=== PATIENT | female | born 1960 | race Caucasian/White ===

== ENCOUNTER 2017-11-05 16:21 | Inpatient (IN) | payer SELFPAY ==
--- NOTE | 2017-11-05 21:43 | RAD ---
Indication: Generalized weakness. Shortness of breath. Shortness of breath on exertion. Comparison: No relevant prior exams available on the [facility] PACS for comparison. Technique: Upright AP 2109 hours Report: Tip of the dual-lumen tunneled RIGHT side central venous catheter is at the level of the RIGHT atrium. Negative for pneumothorax. Small bilateral dependent pleural effusions with proportional basilar atelectasis. Upper normal heart size. Mildly prominent central pulmonary vasculature with cephalization. IMPRESSION: Pulmonary vascular congestion with associated small pleural effusions and basilar atelectasis.
[2017-11-05] MEDS ORDERED: Nitroglycerin 2% OINT* 1 GM PAK TOPICAL ONE (21:53)
[2017-11-05 21:55] LABS: ABS Basophils 0.1 10^3/ul (0-0.2); ABS Eosinophils 0.2 10^3/ul (0-0.6); ABS Lymphocytes 2.2 10^3/ul (1.0-4.8); ABS Monocytes 0.5 10^3/ul (0-0.8); ABS Neutrophils 6.3 10^3/ul (1.5-7.7); ABS Nucleated RBC 0 10^3/ul; Eosinophil % 2.1 % (0-6); Hematocrit 26 % (35-47); Hemoglobin 8.5 g/dl (12.0-16.0); Lymphocyte % 23.5 % (25-47); Mean Corpuscular HGB Conc 33 g/dl (31-36); Mean Corpuscular Hemoglobin 29 pg (27-31); Mean Corpuscular Volume 89 fL (80-97); Mean Platelet Volume 8 um3 (7.4-10.4); Nucleated Red Blood Cells % 0; Platelet Count 391 10^3/ul (150-450); Red Blood Count 2.94 10^6/ul (4.0-5.4); Red Cell Distribution Width 17 % (10.5-15); White Blood Count 9.3 10^3/ul (3.5-10.8)
[2017-11-05] MEDS ORDERED: Furosemide IV* 10 MG/ML VIAL (40 MG) IV SLOW PU ONE (21:57)
[2017-11-05] MEDS ORDERED: Metolazone TAB* 5 MG PO ONE (21:59)
[2017-11-05] MEDS ORDERED: Aspirin Low Dose CHEW TAB* 81 MG PO ONE (21:59)
[2017-11-05 22:02] LABS: INR 0.83 (0.77-1.02)
--- NOTE | 2017-11-05 22:03 | ED ---
Mike Wright Tecjoon, scribed for Thanh Bailey MD on 11/05/17 at 2033 . Complex/Multi-Sys Presentation - HPI Summary HPI Summary: This patient is a 57 year old female presenting to [facility] accompanied by with a chief complaint of general weakness and SOB since a few days ago, worsening today, this afternoon. Patient states that it has been 2 weeks since her last dialysis treatment. Patient states that at onset, sx were just at night , while laying on her bed, but has spread. Patient has SOB on exertion, especially. Patient additionally reports abd distention. Patient denies chest pain, chest heaviness. Patient has hx of kidney disfunction - History Of Current Complaint Chief Complaint: EDShortnessOfBreath Time Seen by Provider: 11/05/17 20:22 Hx Obtained From: Patient Onset/Duration: Gradual Onset, Lasting Days, Still Present, Worse Since - today Timing: Constant Aggravating Factor(s): nothing Alleviating Factor(s): nothing Associated Signs And Symptoms: Positive: Other - abd distention. Negative: Chest Pain - Allergies/Home Medications Allergies/Adverse Reactions: Allergies Allergy/AdvReac Type Severity Reaction Status Date / Time No Known Allergies Allergy Verified 11/05/17 20:35 PMH/Surg Hx/FS Hx/Imm Hx Previously Healthy: No Endocrine/Hematology History: Reports: Hx Diabetes Cardiovascular History: Reports: Hx Hypercholesterolemia, Hx Hypertension Respiratory History: Reports: Hx Chronic Obstructive Pulmonary Disease (COPD) Infectious Disease History: No Infectious Disease History: Denies: Traveled Outside the [place] in Last 30 Days - Family History Known Family History: Positive: Diabetes - Social History Lives: With Family Alcohol Use: None Hx Substance Use: No Hx Tobacco Use: Yes Review of Systems Cardiovascular: Negative - chest heaviness Negative: Chest Pain Positive: Shortness Of Breath Positive: Other - abd distension Positive: Weakness All Other Systems Reviewed And Are Negative: Yes Physical Exam Triage Information Reviewed: Yes Vital Signs On Initial Exam: Initial Vitals Temp Pulse Resp BP Pulse Ox 97.6 F 95 22 175/85 99 11/05/17 16:24 11/05/17 16:24 11/05/17 16:24 11/05/17 16:24 11/05/17 16:24 Vital Signs Reviewed: Yes Appearance: Positive: Well-Appearing, No Pain Distress Skin: Positive: Warm, Skin Color Reflects Adequate Perfusion Head/Face: Positive: Normal Head/Face Inspection Eyes: Positive: EOMI ENT: Positive: Pharynx normal Neck: Positive: Supple, Nontender Respiratory/Lung Sounds: Positive: Clear to Auscultation, Breath Sounds Present Cardiovascular: Positive: RRR. Negative: Murmur Abdomen Description: Positive: Nontender Musculoskeletal: Positive: Strength/ROM Intact, Edema Left, Edema Right Neurological: Positive: Sensory/Motor Intact, Alert, Oriented to Person Place, Time, CN Intact II-III Psychiatric: Positive: Normal - [place] Coma Scale Best Eye Response: 4 - Spontaneous Best Motor Response: 6 - Obeys Commands Best Verbal Response: 5 - Oriented Diagnostics - Vital Signs Vital Signs Temp Pulse Resp BP Pulse Ox 11/05/17 18:00 97.6 F 92 20 172/80 99 11/05/17 16:24 97.6 F 95 22 175/85 99 - Laboratory Result Diagrams: 11/05/17 21:28 Lab Statement: Any lab studies that have been ordered have been reviewed, and results considered in the medical decision making process. - Radiology CXR Xray Interpretation: Positive (See Comments) - IMPRESSION: Pulmonary vascular congestion with associated small pleural effusions and basilar atelectasis. ED physician has reviewed this radiology report. Radiology Interpretation Completed By: Radiologist - EKG 2046 Cardiac Rate: NL EKG Rhythm: Sinus Rhythm - 78 BPM EKG Interpretation: NSR (78 BPM), Normal WI, QRS. Flat T-wave in inferior lateral leads Complex Multi-Symp Course/Dx Course Of Treatment: This patient is a 57 year old female presenting to [facility] accompanied by with a chief complaint of general weakness and SOB since a few days ago, worsening today, this afternoon. Patient states that it has been 2 weeks since her last dialysis treatment. Patient states that at onset , sx were just at night, while laying on her bed, but has spread. Patient has SOB on exertion, especially. Patient additionally reports abd distention. Patient denies chest pain, chest heaviness. Patient has hx of kidney disfunction. An EKG, taken 2046, reveals NSR (78 BPM), Normal WI, QRS. Flat T- wave in inferior lateral leads. CXR reveals, per radiologist, IMPRESSION: Pulmonary vascular congestion with associated small pleural effusions and basilar atelectasis. ED physician has reviewed this radiology report. DW Dr Sebastian who asked me to give the patient 120mg lasix iv and metolazone 5 mg po, he will dialyse in AM. RAÚL Perales. - Diagnoses Provider Diagnoses: Pulmonary edema, Renal failure, Acute electrocardiogram changes - Critical Care Time Critical Care Time: 30-74 min Discharge - Discharge Plan Condition: Good Disposition: ADMITTED TO [facility] Referrals: Alvaro Sebastian MD [Primary Care Provider] - The documentation as recorded by the Mike sue Tecjoon accurately reflects the service I personally performed and the decisions made by me, Thanh Bailey MD.
[2017-11-05 22:10] LABS: EGFR Non-African American 10.1 (>60)
[2017-11-05] MEDS ORDERED: CMCS: Melatonin (NF) 3 MG TAB PO PRN (22:27)
[2017-11-05] MEDS ORDERED: Albuterol 2.5 MG/3 ML NEB.SOL* (0.083%) INH PRN (22:27)
[2017-11-05] MEDS ORDERED: Ondansetron INJ* 2 MG/ML VIAL IV PRN (22:27)
--- NOTE | 2017-11-05 23:13 | HP ---
H&P (Free Text) History and Physical: PCP: Dr Norris, [facility] Nephrology: Dean Sebastian MD Date/Time: 11/05/2016 2220 CC: SOB HPI: Mrs Chavez is a 57YO female HX DM2, ESRD on intermittent HD, HTN, HLD who last had dialysis Oct 11. She reports increased fatigue, SOB, & generalized swelling over the past 3-4 days. The SOB is worse with activity and lying flat. She reports some chills, loose/watery diarrhea x3 today, and had a single episode of N/V today, but denies fevers, sweats, chest pain, palpitations, light -headedness, black or bloody content to emesis/stool, B/U/F of urine, cough, congestion, or other issues. She reports she continues to produce urine, but at much less volume than normal. She adamantly denies sodium indiscretion over the holidays. PMedHx DM2 requiring insulin ESRD on intermittent dialysis HTN HLD Medications Nursing to reconcile. 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 tubal ligation SocHx: 1/2 PPD cigarettes, no alcohol or recreational drugs; , lives with her boyfriend; on medical disability, formerly a postal employee; DNR/I code status FamHx: Mother: passed at 72 2nd CVA, DM2; Father: passed at 57 2nd complications of alcoholism; 3 sisters: (1) HX cervical CA, (1) pre-DM; 2 brothers: (1) healthy, (1) back issues ROS: as above, otherwise reviewed and all were negative vitals: Vital Signs Temp 36.4 C 11/05/17 18:00 Pulse 85 11/05/17 23:00 Resp 20 11/05/17 18:00 BP 140/77 11/05/17 23:00 Pulse Ox 99 11/05/17 23:00 Intake & Output 11/04/17 11/05/17 11/05/17 23:59 11:59 23:59 Weight 78.97 kg Constitutional: NAD, normally developed, overweight unkempt white female appearing much older than her reported age HEENM: atraumatic; sclera/conjunctiva: anicteric/clear; hearing: clinically intact; oropharynx: clear, mucosa moist Neck: soft tissue: non-tender; thyroid: normal Pulmonary: scant fine bibasilar crackles, diffusely diminished B, fair aeration , no accessory muscle use CV: RR/RR, normal S1S2, no carotid bruit, no jugular venous distention, 2+ B DP/ PT, 2+ BLE edema, 1+ B thigh edema, trace pre-sacral edema Abdominal: soft, non-distended, non-tender, no rebound/guarding/rigidity, normoactive bowel sounds, no hepatosplenomegaly or masses, no costovertebral angle tenderness Musculoskeletal: general: grossly intact, no tenderness with palpation Integumental: diffuse anasarca as above Psychiatric orientation: AA&O to PPS affect: calm mood: pleasant eye contact: fair content: reliable responses: timely insight: fair Testing: Lab Results 11/05/17 11/05/17 11/05/17 Range/Units 21:28 21:28 21:28 WBC 9.3 (3.5-10.8) 10^3/ul RBC 2.94 L (4.0-5.4) 10^6/ul Hgb 8.5 L (12.0-16.0) g/dl Hct 26 L (35-47) % MCV 89 (80-97) fL MCH 29 (27-31) pg MCHC 33 (31-36) g/dl RDW 17 H (10.5-15) % Plt Count 391 (150-450) 10^3/ul MPV 8 (7.4-10.4) um3 Neut % (Auto) 68.2 (38-83) % Lymph % (Auto) 23.5 L (25-47) % [place] % (Auto) 5.3 (1-9) % Eos % (Auto) 2.1 (0-6) % Baso % (Auto) 0.9 (0-2) % Absolute Neuts (auto) 6.3 (1.5-7.7) 10^3/ul Absolute Lymphs (auto) 2.2 (1.0-4.8) 10^3/ul Absolute Monos (auto) 0.5 (0-0.8) 10^3/ul Absolute Eos (auto) 0.2 (0-0.6) 10^3/ul Absolute Basos (auto) 0.1 (0-0.2) 10^3/ul Absolute Nucleated RBC 0 10^3/ul Nucleated RBC % 0 INR (Anticoag Therapy) (0.77-1.02) Sodium 140 (133-145) mmol/L Potassium 4.2 (3.5-5.0) mmol/L Chloride 114 H (101-111) mmol/L Carbon Dioxide 18 L (22-32) mmol/L Anion Gap 8 (2-11) mmol/L BUN 67 H (6-24) mg/dL Creatinine 4.51 H (0.51-0.95) mg/dL Est GFR ( Amer) 13.0 (>60) Est GFR (Non-Af Amer) 10.1 (>60) BUN/Creatinine Ratio 14.9 (8-20) Glucose 106 H (70-100) mg/dL Lactic Acid (0.5-2.0) mmol/L Calcium 7.5 L (8.6-10.3) mg/dL Total Bilirubin 0.20 (0.2-1.0) mg/dL AST 21 (13-39) U/L ALT 17 (7-52) U/L Alkaline Phosphatase 57 (34-104) U/L Troponin I 0.08 H* (<0.04) ng/mL B-Natriuretic Peptide 2577 H ( - 100) pg/mL Total Protein 5.2 L (6.4-8.9) g/dL Albumin 1.8 L (3.2-5.2) g/dL Globulin 3.4 (2-4) g/dL Albumin/Globulin Ratio 0.5 L (1-3) 11/05/17 11/05/17 Range/Units 21:28 21:28 WBC (3.5-10.8) 10^3/ul RBC (4.0-5.4) 10^6/ul Hgb (12.0-16.0) g/dl Hct (35-47) % MCV (80-97) fL MCH (27-31) pg MCHC (31-36) g/dl RDW (10.5-15) % Plt Count (150-450) 10^3/ul MPV (7.4-10.4) um3 Neut % (Auto) (38-83) % Lymph % (Auto) (25-47) % [place] % (Auto) (1-9) % Eos % (Auto) (0-6) % Baso % (Auto) (0-2) % Absolute Neuts (auto) (1.5-7.7) 10^3/ul Absolute Lymphs (auto) (1.0-4.8) 10^3/ul Absolute Monos (auto) (0-0.8) 10^3/ul Absolute Eos (auto) (0-0.6) 10^3/ul Absolute Basos (auto) (0-0.2) 10^3/ul Absolute Nucleated RBC 10^3/ul Nucleated RBC % INR (Anticoag Therapy) 0.83 (0.77-1.02) Sodium (133-145) mmol/L Potassium (3.5-5.0) mmol/L Chloride (101-111) mmol/L Carbon Dioxide (22-32) mmol/L Anion Gap (2-11) mmol/L BUN (6-24) mg/dL Creatinine (0.51-0.95) mg/dL Est GFR ( Amer) (>60) Est GFR (Non-Af Amer) (>60) BUN/Creatinine Ratio (8-20) Glucose (70-100) mg/dL Lactic Acid 0.3 L (0.5-2.0) mmol/L Calcium (8.6-10.3) mg/dL Total Bilirubin (0.2-1.0) mg/dL AST (13-39) U/L ALT (7-52) U/L Alkaline Phosphatase (34-104) U/L Troponin I (<0.04) ng/mL B-Natriuretic Peptide ( - 100) pg/mL Total Protein (6.4-8.9) g/dL Albumin (3.2-5.2) g/dL Globulin (2-4) g/dL Albumin/Globulin Ratio (1-3) ECG, personally reviewed: NSR rate 78, no ischemia, low voltage, diffuse ST-T flattening; no comparison CXR, personally reviewed: IMPRESSION: Pulmonary vascular congestion with associated small pleural effusions and basilar atelectasis. Impression: 57F HX DM2 w/ ESRD-intermittent HD presents with volume overload and generalized anasarca DIAGNOSIS & PLAN Primary DM2 w/ ESRD w/ acute volume overload : given 120mg IV furosemide & metolazone 5mg PO in ED : villatoro to gravity PRN patient preference : Dean Sebastian MD nephrology consulted by ED, will arrange HD in AM : strict I&Os : daily weights : supplemental oxygen : supportive care Secondary DM2 : check A1c : insulin carb ratio & renal diet : basal/bolus/correctional insulin HTN : review meds once reconciled HLD : review meds once reconciled Admission Rational: inpatient for volume overload 2nd DM2 w/ ESRD; inappropriate for outpatient setting DVTp: SCDs Code Status: DNR/I
[2017-11-06] MEDS: Omeprazole CAP* 20 MG PO SCH (05:20)
[2017-11-06 06:39] LABS: EGFR Non-African American 9.9 (>60)
[2017-11-06] MEDS: Docusate CAP* 100 MG PO SCH ×2 (07:54→21:54)
[2017-11-06] MEDS: Insulin LISPRO* 1 UNITS UNIT SUBCUT SCH ×7 (07:54→21:45)
[2017-11-06] MEDS ORDERED: Metolazone TAB* 5 MG PO ONE (08:55)
[2017-11-06] MEDS: Acetaminophen TAB* 325 MG PO PRN (10:07)
[2017-11-06] MEDS: Furosemide IV* 10 MG/ML VIAL (40 MG) IV SCH ×2 (10:38→21:55)
[2017-11-06] MEDS ORDERED: Ferrous Sulfate TAB* 325 MG PO SCH (10:45)
--- NOTE | 2017-11-06 11:00 | PN ---
Subjective Date of Service: 11/06/17 Interval History: Previously saw [place] [facility] Dr. Mckeon, now Dr. Sebastian States gained 137->172 over last month, since last HD on 10/11. Kathy Has S Norris PCP appointment on friday. taking torsemide 100mg PO bid. barbara is her insurance. Objective Active Medications: Acetaminophen (Tylenol Tab*) 650 mg PO Q6H PRN PRN Reason: FEVER/PAIN Last Admin: 11/06/17 10:07 Dose: 650 mg Albuterol (Ventolin 2.5 Mg/3 Ml Neb.Yazmin*) 2.5 mg INH Q2H PRN PRN Reason: SOB/WHEEZING Ascorbic Acid (Vitamin C Tab*) 250 mg PO DAILY [facility] Atorvastatin Calcium (Lipitor*) 40 mg PO 2100 [facility] Docusate Sodium (Colace Cap*) 200 mg PO BID [facility] Last Admin: 11/06/17 07:54 Dose: Not Given Ferrous Sulfate (Ferrous Sulfate Tab*) 65 mg PO BID [facility] Fluoxetine HCl (Prozac Cap*) 20 mg PO BEDTIME [facility] Folic Acid (Folvite Tab*) 0.5 mg PO BEDTIME [facility] Furosemide (Lasix Iv*) 120 mg IV Q12HR [facility] Last Admin: 11/06/17 10:38 Dose: 120 mg Gabapentin (Neurontin Cap(*)) 100 mg PO TID [facility] Insulin Glargine (Lantus(*)) 16 units 0.2 units/kg (16 units) SUBCUT 2100 CARMINA Insulin Human Lispro (Humalog*) 0 units SUBCUT AC [facility]MINA PRN Reason: Protocol Last Admin: 11/06/17 09:09 Dose: 7 unit Insulin Human Lispro (Humalog*) 0 units SUBCUT ACHS [facility] PRN Reason: Protocol Last Admin: 11/06/17 07:54 Dose: Not Given Melatonin (Melatonin (Nf)) 3 mg PO BEDTIME PRN; Protocol PRN Reason: Sleep Omeprazole (Prilosec Cap*) 20 mg PO DAILY@0600 [facility] Last Admin: 11/06/17 05:20 Dose: 20 mg Ondansetron HCl (Zofran Inj*) 4 mg IV Q6H PRN PRN Reason: NAUSEA Vitamin B Complex/Vitamin E (Complex B-100*) 1 tab PO BEDTIME [facility] Vital Signs - 8 hr 01/02/1811/06/17 11/06/17 03:54 07:55 08:14 Temperature 97.8 F 98.1 F Pulse Rate 85 82 Respiratory 18 18 20 Rate Blood Pressure 137/72 129/57 (mmHg) O2 Sat by Pulse 94 94 Oximetry Oxygen Devices in Use Now: None Appearance: anisarca, fine rales. Eyes: No Scleral Icterus, PERRLA Ears/Nose/Mouth/Throat: NL Teeth, Lips, Gums, Mucous Membranes Moist Respiratory: - - rales Cardiovascular: NL Sounds; No Murmurs; No JVD, RRR Abdominal: - Extremities: - - 2+ edema in feet, legs, hands, dependently Skin: No Rash or Ulcers Neurological: Alert and Oriented x 3, NL Sensation, NL Muscle Strength and Tone Nutrition: Taking PO's Result Diagrams: 11/05/17 21:28 11/06/17 05:44 Additional Lab and Data: Laboratory Results - last 24 hr 11/05/17 11/05/17 11/05/17 21:28 21:28 21:28 WBC 9.3 RBC 2.94 L Hgb 8.5 L Hct 26 L MCV 89 MCH 29 MCHC 33 RDW 17 H Plt Count 391 MPV 8 Neut % (Auto) 68.2 Lymph % (Auto) 23.5 L [place] % (Auto) 5.3 Eos % (Auto) 2.1 Baso % (Auto) 0.9 Absolute Neuts (auto) 6.3 Absolute Lymphs (auto) 2.2 Absolute Monos (auto) 0.5 Absolute Eos (auto) 0.2 Absolute Basos (auto) 0.1 Absolute Nucleated RBC 0 Nucleated RBC % 0 INR (Anticoag Therapy) Sodium 140 Potassium 4.2 Chloride 114 H Carbon Dioxide 18 L Anion Gap 8 BUN 67 H Creatinine 4.51 H Est GFR ( Amer) 13.0 Est GFR (Non-Af Amer) 10.1 BUN/Creatinine Ratio 14.9 Glucose 106 H POC Glucose (mg/dL) Hemoglobin A1c Lactic Acid Calcium 7.5 L Phosphorus Magnesium Total Bilirubin 0.20 AST 21 ALT 17 Alkaline Phosphatase 57 Troponin I 0.08 H* B-Natriuretic Peptide 2577 H Total Protein 5.2 L Albumin 1.8 L Globulin 3.4 Albumin/Globulin Ratio 0.5 L 11/05/17 11/05/17 11/05/17 21:28 21:28 21:28 WBC RBC Hgb Hct MCV MCH MCHC RDW Plt Count MPV Neut % (Auto) Lymph % (Auto) [place] % (Auto) Eos % (Auto) Baso % (Auto) Absolute Neuts (auto) Absolute Lymphs (auto) Absolute Monos (auto) Absolute Eos (auto) Absolute Basos (auto) Absolute Nucleated RBC Nucleated RBC % INR (Anticoag Therapy) 0.83 Sodium Potassium Chloride Carbon Dioxide Anion Gap BUN Creatinine Est GFR ( Amer) Est GFR (Non-Af Amer) BUN/Creatinine Ratio Glucose POC Glucose (mg/dL) Hemoglobin A1c 5.7 H Lactic Acid 0.3 L Calcium Phosphorus Magnesium Total Bilirubin AST ALT Alkaline Phosphatase Troponin I B-Natriuretic Peptide Total Protein Albumin Globulin Albumin/Globulin Ratio 11/06/17 11/06/17 11/06/17 05:44 07:49 11:19 WBC RBC Hgb Hct MCV MCH MCHC RDW Plt Count MPV Neut % (Auto) Lymph % (Auto) [place] % (Auto) Eos % (Auto) Baso % (Auto) Absolute Neuts (auto) Absolute Lymphs (auto) Absolute Monos (auto) Absolute Eos (auto) Absolute Basos (auto) Absolute Nucleated RBC Nucleated RBC % INR (Anticoag Therapy) Sodium 142 Potassium 4.2 Chloride 116 H Carbon Dioxide 15 L Anion Gap 11 BUN 70 H Creatinine 4.58 H Est GFR ( Amer) 12.8 Est GFR (Non-Af Amer) 9.9 BUN/Creatinine Ratio 15.3 Glucose 113 H POC Glucose (mg/dL) 102 H 124 H Hemoglobin A1c Lactic Acid Calcium 7.6 L Phosphorus 10.4 H Magnesium 2.3 Total Bilirubin AST ALT Alkaline Phosphatase Troponin I B-Natriuretic Peptide Total Protein Albumin Globulin Albumin/Globulin Ratio 11/06/17 16:46 WBC RBC Hgb Hct MCV MCH MCHC RDW Plt Count MPV Neut % (Auto) Lymph % (Auto) [place] % (Auto) Eos % (Auto) Baso % (Auto) Absolute Neuts (auto) Absolute Lymphs (auto) Absolute Monos (auto) Absolute Eos (auto) Absolute Basos (auto) Absolute Nucleated RBC Nucleated RBC % INR (Anticoag Therapy) Sodium Potassium Chloride Carbon Dioxide Anion Gap BUN Creatinine Est GFR ( Amer) Est GFR (Non-Af Amer) BUN/Creatinine Ratio Glucose POC Glucose (mg/dL) 87 Hemoglobin A1c Lactic Acid Calcium Phosphorus Magnesium Total Bilirubin AST ALT Alkaline Phosphatase Troponin I B-Natriuretic Peptide Total Protein Albumin Globulin Albumin/Globulin Ratio Assess/Plan/Problems-Billing Assessment: 57 yo female PMG DMT2, CKD stage V, HTN, HLD who got 3x week HD from 09/24 to who presents in [facility] having gained 35lbs since las HD. Suspect will be HD dependent, on board, plan HD 11/07. - Patient Problems (1) ESRD (end stage renal disease) Current Visit: Yes Status: Acute Code(s): N18.6 - END STAGE RENAL DISEASE SNOMED Code(s): 93732537 Comment: appreciate Nephrology recs. Dr Sebastian wanted metolazone 5mg + 120 mg IV lasix BID. Home was torsemide 100mg BID and states did not miss. Planned HD 11/07. phoslo TID. (2) HLD (hyperlipidemia) Current Visit: Yes Status: Acute Code(s): E78.5 - HYPERLIPIDEMIA, UNSPECIFIED SNOMED Code(s): 29242538 (3) HTN (hypertension) Current Visit: Yes Status: Acute Code(s): I10 - ESSENTIAL (PRIMARY) HYPERTENSION SNOMED Code(s): 53332802 Comment: continue amlodipine 10mg and diuresis with lasix/metolazone. (4) Diabetes mellitus Current Visit: Yes Status: Acute Code(s): E11.9 - TYPE 2 DIABETES MELLITUS WITHOUT COMPLICATIONS SNOMED Code(s): 91976855 Comment: stop lantus 16U qhs in setting of worsening renal failure. SSI POCT qachs Status and Disposition: medicine inpatient. Attending: Shant Finch
[2017-11-06] MEDS: amLODIPine TAB* 5 MG PO SCH (12:56)
[2017-11-06] MEDS: Calcium Acetate CAP* 667 MG PO SCH ×2 (12:56→21:55)
[2017-11-06] MEDS: Gabapentin CAP(*) 100 MG PO SCH ×2 (12:57→21:54)
--- NOTE | 2017-11-06 17:52 | PN ---
PROGRESS NOTE: DATE OF VISIT: 11/06/16 HISTORY: Ms. Chavez is a 57-year-old female, well known to me from outpatient management on dialysis. She had had an episode of acute deterioration of renal function and she eventually came off dialysis and had been relatively stable for the last month. She presented because of worsening shortness of breath and edema. Recently, she had had an acute elevation in her serum creatinine and I had her scheduled in the office today to discuss the reinitiation of dialysis. She came into the hospital last night and was diuresed and is now breathing considerably better. She is in negative fluid balance. She has had no intercurrent medical illness that she recognized, no chest pain, no shortness of breath, no fever, no chills. No nausea or vomiting or diarrhea. PHYSICAL EXAMINATION: She is afebrile. Her blood pressure is 129/57, pulse is 82, respirations 18, O2 saturation 94%. She has some scattered rhonchi in her lungs. The heart revealed regular rhythm without murmurs. She does have 2+ edema. LABORATORY DATA: White count is 9.3, hemoglobin is 8.5, sodium 142, potassium 4.2, total CO2 15, chloride 116, BUN 70, creatinine 4.58, phosphorus is 10.4. IMPRESSION: Acute on chronic renal insufficiency. I am a little less optimistic now that she will come back off dialysis, although that is still possible. We should reinitiate dialysis but I will continue to diurese her today. She should probably receive 5 mg of metolazone followed by 120 mg of furosemide twice today. I would start her on phosphate binder in the form of calcium acetate 667 mg t.i.d. with meals. We will probably give her some erythropoietin tomorrow around her dialysis. [id number]/[facility] #: [id number] MTDD
[2017-11-06] MEDS ORDERED: Insulin GLARGINE(*) 1 UNITS UNIT SUBCUT SCH (21:00)
[2017-11-06] MEDS ORDERED: B COMPLEX PO SCH (21:00)
[2017-11-06] MEDS ORDERED: FOLIC ACID PO SCH (21:00)
[2017-11-06] MEDS ORDERED: [UNRECOGNIZED DRUG - OTHER] PO SCH (21:00)
[2017-11-06] MEDS: Vitamin B Complex TAB PO SCH (21:54)
[2017-11-06] MEDS: Atorvastatin* 40 MG TAB PO SCH (21:54)
[2017-11-06] MEDS: Folic Acid TAB* 1 MG PO SCH (21:54)
[2017-11-06] MEDS: FLUoxetine CAP* 20 MG PO SCH (21:55)
[2017-11-06] MEDS: Ferrous Sulfate TAB* 325 MG PO SCH (21:55)
[2017-11-07] MEDS: Omeprazole CAP* 20 MG PO SCH (05:41)
[2017-11-07] MEDS: Insulin LISPRO* 1 UNITS UNIT SUBCUT SCH ×7 (08:21→20:48)
[2017-11-07] MEDS: Docusate CAP* 100 MG PO SCH ×2 (08:42→20:57)
[2017-11-07] MEDS: Calcium Acetate CAP* 667 MG PO SCH ×3 (08:43→20:56)
[2017-11-07] MEDS: Ferrous Sulfate TAB* 325 MG PO SCH ×2 (08:43→20:56)
[2017-11-07] MEDS: Gabapentin CAP(*) 100 MG PO SCH ×3 (08:43→20:56)
[2017-11-07] MEDS ORDERED: Heparin DIALYSIS ONLY(*) 1,000 UNITS/ML VIAL DIALYSIS ONE (12:00)
[2017-11-07] MEDS ORDERED: Epoetin Alfa* 10,000 UNITS/ML VIAL IV ONE (12:00)
[2017-11-07] MEDS: amLODIPine TAB* 5 MG PO SCH (13:12)
[2017-11-07] MEDS: Ascorbic Acid TAB* 500 MG PO SCH (13:13)
[2017-11-07] MEDS: Furosemide IV* 10 MG/ML VIAL (40 MG) IV SCH ×2 (13:13→20:55)
--- NOTE | 2017-11-07 13:34 | PN ---
Subjective Date of Service: 11/07/17 Interval History: no complaints, sitting in chair, dialysis being completed. Denies chest pain, Denies shortness of breath, Denies N/V/D Family History: Unchanged from Admission Social History: Unchanged from Admission Past Medical History: Unchanged from Admission Objective Active Medications: Acetaminophen (Tylenol Tab*) 650 mg PO Q6H PRN PRN Reason: FEVER/PAIN Last Admin: 11/06/17 10:07 Dose: 650 mg Albuterol (Ventolin 2.5 Mg/3 Ml Neb.Yazmin*) 2.5 mg INH Q2H PRN PRN Reason: SOB/WHEEZING Amlodipine Besylate (Norvasc Tab*) 10 mg PO DAILY [facility] Last Admin: 11/07/17 13:12 Dose: 10 mg Ascorbic Acid (Vitamin C Tab*) 250 mg PO DAILY [facility] Last Admin: 11/07/17 13:13 Dose: 250 mg Atorvastatin Calcium (Lipitor*) 40 mg PO 2100 [facility] Last Admin: 11/06/17 21:54 Dose: 40 mg Calcium Acetate (Phoslo Cap*) 667 mg PO TID [facility] Last Admin: 11/07/17 13:12 Dose: 667 mg Docusate Sodium (Colace Cap*) 200 mg PO BID [facility] Last Admin: 11/07/17 08:42 Dose: Not Given Ferrous Sulfate (Ferrous Sulfate Tab*) 325 mg PO BID [facility] Last Admin: 11/07/17 08:43 Dose: 325 mg Fluoxetine HCl (Prozac Cap*) 20 mg PO BEDTIME [facility] Last Admin: 11/06/17 21:55 Dose: 20 mg Folic Acid (Folvite Tab*) 0.5 mg PO BEDTIME [facility] Last Admin: 11/06/17 21:54 Dose: 0.5 mg Furosemide (Lasix Iv*) 120 mg IV Q12HR [facility] Last Admin: 11/07/17 13:13 Dose: 120 mg Gabapentin (Neurontin Cap(*)) 100 mg PO TID [facility] Last Admin: 11/07/17 13:12 Dose: 100 mg Insulin Human Lispro (Humalog*) 0 units SUBCUT AC [facility] PRN Reason: Protocol Last Admin: 11/07/17 08:51 Dose: 2 unit Insulin Human Lispro (Humalog*) 0 units SUBCUT ACHS [facility] PRN Reason: Protocol Last Admin: 11/07/17 12:56 Dose: Not Given Melatonin (Melatonin (Nf)) 3 mg PO BEDTIME PRN; Protocol PRN Reason: Sleep Omeprazole (Prilosec Cap*) 20 mg PO DAILY@0600 [facility] Last Admin: 11/07/17 05:41 Dose: 20 mg Ondansetron HCl (Zofran Inj*) 4 mg IV Q6H PRN PRN Reason: NAUSEA Vitamin B Complex/Vitamin E (Complex B-100*) 1 tab PO BEDTIME [facility] Last Admin: 11/06/17 21:54 Dose: 1 tab Vital Signs - 8 hr 11/07/17 11/07/17 11/07/17 07:27 07:56 08:43 Temperature 97.6 F Pulse Rate 75 80 Respiratory 20 16 20 Rate Blood Pressure 118/57 (mmHg) O2 Sat by Pulse 96 92 Oximetry 11/07/17 11/07/17 13:12 13:15 Temperature Pulse Rate Respiratory 20 20 Rate Blood Pressure (mmHg) O2 Sat by Pulse Oximetry Oxygen Devices in Use Now: None Appearance: awake , alert, appears comfortable sittingin the chair Eyes: No Scleral Icterus, PERRLA Ears/Nose/Mouth/Throat: Clear Oropharnyx, Mucous Membranes Moist Neck: NL Appearance and Movements; NL JVP, Trachea Midline Respiratory: Symmetrical Chest Expansion and Respiratory Effort, Clear to Auscultation - diminished at the bases bilat Cardiovascular: NL Sounds; No Murmurs; No JVD, RRR Abdominal: NL Sounds; No Tenderness; No Distention Extremities: No Clubbing, Cyanosis, - - anasarca Skin: No Rash or Ulcers Neurological: Alert and Oriented x 3 Nutrition: Taking PO's Result Diagrams: 11/05/17 21:28 11/06/17 05:44 Additional Lab and Data: Laboratory Results - last 24 hr 11/05/17 11/05/17 11/05/17 21:28 21:28 21:28 WBC 9.3 RBC 2.94 L Hgb 8.5 L Hct 26 L MCV 89 MCH 29 MCHC 33 RDW 17 H Plt Count 391 MPV 8 Neut % (Auto) 68.2 Lymph % (Auto) 23.5 L [place] % (Auto) 5.3 Eos % (Auto) 2.1 Baso % (Auto) 0.9 Absolute Neuts (auto) 6.3 Absolute Lymphs (auto) 2.2 Absolute Monos (auto) 0.5 Absolute Eos (auto) 0.2 Absolute Basos (auto) 0.1 Absolute Nucleated RBC 0 Nucleated RBC % 0 INR (Anticoag Therapy) Sodium 140 Potassium 4.2 Chloride 114 H Carbon Dioxide 18 L Anion Gap 8 BUN 67 H Creatinine 4.51 H Est GFR ( Amer) 13.0 Est GFR (Non-Af Amer) 10.1 BUN/Creatinine Ratio 14.9 Glucose 106 H POC Glucose (mg/dL) Hemoglobin A1c Lactic Acid Calcium 7.5 L Phosphorus Magnesium Total Bilirubin 0.20 AST 21 ALT 17 Alkaline Phosphatase 57 Troponin I 0.08 H* B-Natriuretic Peptide 2577 H Total Protein 5.2 L Albumin 1.8 L Globulin 3.4 Albumin/Globulin Ratio 0.5 L 11/05/17 11/05/17 11/05/17 21:28 21:28 21:28 WBC RBC Hgb Hct MCV MCH MCHC RDW Plt Count MPV Neut % (Auto) Lymph % (Auto) [place] % (Auto) Eos % (Auto) Baso % (Auto) Absolute Neuts (auto) Absolute Lymphs (auto) Absolute Monos (auto) Absolute Eos (auto) Absolute Basos (auto) Absolute Nucleated RBC Nucleated RBC % INR (Anticoag Therapy) 0.83 Sodium Potassium Chloride Carbon Dioxide Anion Gap BUN Creatinine Est GFR ( Amer) Est GFR (Non-Af Amer) BUN/Creatinine Ratio Glucose POC Glucose (mg/dL) Hemoglobin A1c 5.7 H Lactic Acid 0.3 L Calcium Phosphorus Magnesium Total Bilirubin AST ALT Alkaline Phosphatase Troponin I B-Natriuretic Peptide Total Protein Albumin Globulin Albumin/Globulin Ratio 11/06/17 11/06/17 11/06/17 05:44 07:49 11:19 WBC RBC Hgb Hct MCV MCH MCHC RDW Plt Count MPV Neut % (Auto) Lymph % (Auto) [place] % (Auto) Eos % (Auto) Baso % (Auto) Absolute Neuts (auto) Absolute Lymphs (auto) Absolute Monos (auto) Absolute Eos (auto) Absolute Basos (auto) Absolute Nucleated RBC Nucleated RBC % INR (Anticoag Therapy) Sodium 142 Potassium 4.2 Chloride 116 H Carbon Dioxide 15 L Anion Gap 11 BUN 70 H Creatinine 4.58 H Est GFR ( Amer) 12.8 Est GFR (Non-Af Amer) 9.9 BUN/Creatinine Ratio 15.3 Glucose 113 H POC Glucose (mg/dL) 102 H 124 H Hemoglobin A1c Lactic Acid Calcium 7.6 L Phosphorus 10.4 H Magnesium 2.3 Total Bilirubin AST ALT Alkaline Phosphatase Troponin I B-Natriuretic Peptide Total Protein Albumin Globulin Albumin/Globulin Ratio 11/06/17 16:46 WBC RBC Hgb Hct MCV MCH MCHC RDW Plt Count MPV Neut % (Auto) Lymph % (Auto) [place] % (Auto) Eos % (Auto) Baso % (Auto) Absolute Neuts (auto) Absolute Lymphs (auto) Absolute Monos (auto) Absolute Eos (auto) Absolute Basos (auto) Absolute Nucleated RBC Nucleated RBC % INR (Anticoag Therapy) Sodium Potassium Chloride Carbon Dioxide Anion Gap BUN Creatinine Est GFR ( Amer) Est GFR (Non-Af Amer) BUN/Creatinine Ratio Glucose POC Glucose (mg/dL) 87 Hemoglobin A1c Lactic Acid Calcium Phosphorus Magnesium Total Bilirubin AST ALT Alkaline Phosphatase Troponin I B-Natriuretic Peptide Total Protein Albumin Globulin Albumin/Globulin Ratio Assess/Plan/Problems-Billing Assessment: 57 yo female PMG DMT2, CKD stage V, HTN, HLD who got 3x week HD from 09/24 to who presents in [facility] having gained 35lbs since las HD. Suspect will be HD dependent, on board, plan HD 11/07. - Patient Problems (1) Diabetes mellitus Current Visit: Yes Status: Acute Code(s): E11.9 - TYPE 2 DIABETES MELLITUS WITHOUT COMPLICATIONS SNOMED Code(s): 92690510 Comment: Lantus was stopped d/t worsening renal failure Continue Sliding scale at home (2) ESRD (end stage renal disease) Current Visit: Yes Status: Acute Code(s): N18.6 - END STAGE RENAL DISEASE SNOMED Code(s): 31994946 Comment: appreciate Nephrology recs. Dr Sebastian wanted metolazone 5mg + 120 mg IV lasix BID. Home was torsemide 100mg BID and states did not miss. Planned HD 11/07 was done today phoslo TID. Will discharge in AM To report to Emergency room on Friday11/10/17, Friday11/12/17 and Friday for Dialysis. and then continue this on a weekly basis. (3) HLD (hyperlipidemia) Current Visit: Yes Status: Acute Code(s): E78.5 - HYPERLIPIDEMIA, UNSPECIFIED SNOMED Code(s): 17791231 (4) HTN (hypertension) Current Visit: Yes Status: Acute Code(s): I10 - ESSENTIAL (PRIMARY) HYPERTENSION SNOMED Code(s): 42404879 Comment: continue amlodipine 10mg and diuresis with lasix/metolazone. Status and Disposition: medicine inpatient. Points of Discussion: Discharge home in the AM. Continue Home medications as prior to admission with the exception of Lantus which was D/c'd Will start Phoslo 667 mg 3 times a day with meals as per Dr. Sebastian recommendations.
[2017-11-07] MEDS: Vitamin B Complex TAB PO SCH (20:55)
[2017-11-07] MEDS: Atorvastatin* 40 MG TAB PO SCH (20:55)
[2017-11-07] MEDS: Folic Acid TAB* 1 MG PO SCH (20:56)
[2017-11-07] MEDS: FLUoxetine CAP* 20 MG PO SCH (20:56)
[2017-11-07] MEDS: Acetaminophen TAB* 325 MG PO PRN (21:08)
[2017-11-08] MEDS: Omeprazole CAP* 20 MG PO SCH (05:01)
[2017-11-08] MEDS: Insulin LISPRO* 1 UNITS UNIT SUBCUT SCH ×7 (07:45→22:18)
[2017-11-08] MEDS: Gabapentin CAP(*) 100 MG PO SCH ×3 (07:54→22:17)
[2017-11-08] MEDS: Ferrous Sulfate TAB* 325 MG PO SCH (07:54)
[2017-11-08] MEDS: Calcium Acetate CAP* 667 MG PO SCH ×3 (07:54→22:18)
[2017-11-08] MEDS: Ascorbic Acid TAB* 500 MG PO SCH (07:55)
[2017-11-08] MEDS: Acetaminophen TAB* 325 MG PO PRN (07:55)
[2017-11-08] MEDS: amLODIPine TAB* 5 MG PO SCH (07:56)
[2017-11-08] MEDS: Docusate CAP* 100 MG PO SCH ×2 (07:57→22:20)
[2017-11-08] MEDS: Furosemide IV* 10 MG/ML VIAL (40 MG) IV SCH ×2 (10:10→11:20)
--- NOTE | 2017-11-08 10:46 | PN ---
Subjective Date of Service: 11/08/17 Interval History: C/O 4-extremity edema, concerned about her ability to get up the stairs in front of her front door. Family History: Unchanged from Admission Social History: Unchanged from Admission Past Medical History: Unchanged from Admission Objective Active Medications: Acetaminophen (Tylenol Tab*) 650 mg PO Q6H PRN PRN Reason: FEVER/PAIN Last Admin: 11/08/17 07:55 Dose: 650 mg Albuterol (Ventolin 2.5 Mg/3 Ml Neb.Yazmin*) 2.5 mg INH Q2H PRN PRN Reason: SOB/WHEEZING Amlodipine Besylate (Norvasc Tab*) 10 mg PO DAILY [facility] Last Admin: 11/08/17 07:56 Dose: 10 mg Ascorbic Acid (Vitamin C Tab*) 250 mg PO DAILY [facility] Last Admin: 11/08/17 07:55 Dose: 250 mg Atorvastatin Calcium (Lipitor*) 40 mg PO 2100 [facility] Last Admin: 11/07/17 20:55 Dose: 40 mg Calcium Acetate (Phoslo Cap*) 667 mg PO TID [facility] Last Admin: 11/08/17 07:54 Dose: 667 mg Docusate Sodium (Colace Cap*) 200 mg PO BID [facility] Last Admin: 11/08/17 07:57 Dose: Not Given Ferrous Sulfate (Ferrous Sulfate Tab*) 325 mg PO BID [facility] Last Admin: 11/08/17 07:54 Dose: 325 mg Fluoxetine HCl (Prozac Cap*) 20 mg PO BEDTIME [facility] Last Admin: 11/07/17 20:56 Dose: 20 mg Folic Acid (Folvite Tab*) 0.5 mg PO BEDTIME [facility] Last Admin: 11/07/17 20:56 Dose: 0.5 mg Furosemide (Lasix Iv*) 120 mg IV Q12HR [facility] Last Admin: 11/07/17 20:55 Dose: 120 mg Gabapentin (Neurontin Cap(*)) 100 mg PO TID [facility] Last Admin: 11/08/17 07:54 Dose: 100 mg Insulin Human Lispro (Humalog*) 0 units SUBCUT AC [facility] PRN Reason: Protocol Last Admin: 11/07/17 17:51 Dose: 10 unit Insulin Human Lispro (Humalog*) 0 units SUBCUT ACHS [facility] PRN Reason: Protocol Last Admin: 11/08/17 07:45 Dose: Not Given Melatonin (Melatonin (Nf)) 3 mg PO BEDTIME PRN; Protocol PRN Reason: Sleep Omeprazole (Prilosec Cap*) 20 mg PO DAILY@0600 [facility] Last Admin: 11/08/17 05:01 Dose: 20 mg Ondansetron HCl (Zofran Inj*) 4 mg IV Q6H PRN PRN Reason: NAUSEA Vitamin B Complex/Vitamin E (Complex B-100*) 1 tab PO BEDTIME [facility] Last Admin: 11/07/17 20:55 Dose: 1 tab Vital Signs - 8 hr 11/08/17 11/08/17 11/08/17 03:41 07:54 08:46 Temperature 97.7 F Pulse Rate 71 71 Respiratory 16 16 18 Rate Blood Pressure 130/72 (mmHg) O2 Sat by Pulse 96 96 Oximetry Oxygen Devices in Use Now: None Appearance: Alert, partly up in bed. In fair spirits. Looks comfortable. Eyes: No Scleral Icterus Respiratory: Symmetrical Chest Expansion and Respiratory Effort, Clear to Auscultation, Clear to Percussion Extremities: No Clubbing, Cyanosis, - - 2+ edema both arms, both thighs. Skin: No Rash or Ulcers, No Nodules or Sclerosis Neurological: Alert and Oriented x 3, NL Sensation Result Diagrams: 11/05/17 21:28 11/06/17 05:44 Additional Lab and Data: Laboratory Results - last 24 hr 11/05/17 11/05/17 11/05/17 21:28 21:28 21:28 WBC 9.3 RBC 2.94 L Hgb 8.5 L Hct 26 L MCV 89 MCH 29 MCHC 33 RDW 17 H Plt Count 391 MPV 8 Neut % (Auto) 68.2 Lymph % (Auto) 23.5 L [place] % (Auto) 5.3 Eos % (Auto) 2.1 Baso % (Auto) 0.9 Absolute Neuts (auto) 6.3 Absolute Lymphs (auto) 2.2 Absolute Monos (auto) 0.5 Absolute Eos (auto) 0.2 Absolute Basos (auto) 0.1 Absolute Nucleated RBC 0 Nucleated RBC % 0 INR (Anticoag Therapy) Sodium 140 Potassium 4.2 Chloride 114 H Carbon Dioxide 18 L Anion Gap 8 BUN 67 H Creatinine 4.51 H Est GFR ( Amer) 13.0 Est GFR (Non-Af Amer) 10.1 BUN/Creatinine Ratio 14.9 Glucose 106 H POC Glucose (mg/dL) Hemoglobin A1c Lactic Acid Calcium 7.5 L Phosphorus Magnesium Total Bilirubin 0.20 AST 21 ALT 17 Alkaline Phosphatase 57 Troponin I 0.08 H* B-Natriuretic Peptide 2577 H Total Protein 5.2 L Albumin 1.8 L Globulin 3.4 Albumin/Globulin Ratio 0.5 L 11/05/17 11/05/17 11/05/17 21:28 21:28 21:28 WBC RBC Hgb Hct MCV MCH MCHC RDW Plt Count MPV Neut % (Auto) Lymph % (Auto) [place] % (Auto) Eos % (Auto) Baso % (Auto) Absolute Neuts (auto) Absolute Lymphs (auto) Absolute Monos (auto) Absolute Eos (auto) Absolute Basos (auto) Absolute Nucleated RBC Nucleated RBC % INR (Anticoag Therapy) 0.83 Sodium Potassium Chloride Carbon Dioxide Anion Gap BUN Creatinine Est GFR ( Amer) Est GFR (Non-Af Amer) BUN/Creatinine Ratio Glucose POC Glucose (mg/dL) Hemoglobin A1c 5.7 H Lactic Acid 0.3 L Calcium Phosphorus Magnesium Total Bilirubin AST ALT Alkaline Phosphatase Troponin I B-Natriuretic Peptide Total Protein Albumin Globulin Albumin/Globulin Ratio 11/06/17 11/06/17 11/06/17 05:44 07:49 11:19 WBC RBC Hgb Hct MCV MCH MCHC RDW Plt Count MPV Neut % (Auto) Lymph % (Auto) [place] % (Auto) Eos % (Auto) Baso % (Auto) Absolute Neuts (auto) Absolute Lymphs (auto) Absolute Monos (auto) Absolute Eos (auto) Absolute Basos (auto) Absolute Nucleated RBC Nucleated RBC % INR (Anticoag Therapy) Sodium 142 Potassium 4.2 Chloride 116 H Carbon Dioxide 15 L Anion Gap 11 BUN 70 H Creatinine 4.58 H Est GFR ( Amer) 12.8 Est GFR (Non-Af Amer) 9.9 BUN/Creatinine Ratio 15.3 Glucose 113 H POC Glucose (mg/dL) 102 H 124 H Hemoglobin A1c Lactic Acid Calcium 7.6 L Phosphorus 10.4 H Magnesium 2.3 Total Bilirubin AST ALT Alkaline Phosphatase Troponin I B-Natriuretic Peptide Total Protein Albumin Globulin Albumin/Globulin Ratio 11/06/17 16:46 WBC RBC Hgb Hct MCV MCH MCHC RDW Plt Count MPV Neut % (Auto) Lymph % (Auto) [place] % (Auto) Eos % (Auto) Baso % (Auto) Absolute Neuts (auto) Absolute Lymphs (auto) Absolute Monos (auto) Absolute Eos (auto) Absolute Basos (auto) Absolute Nucleated RBC Nucleated RBC % INR (Anticoag Therapy) Sodium Potassium Chloride Carbon Dioxide Anion Gap BUN Creatinine Est GFR ( Amer) Est GFR (Non-Af Amer) BUN/Creatinine Ratio Glucose POC Glucose (mg/dL) 87 Hemoglobin A1c Lactic Acid Calcium Phosphorus Magnesium Total Bilirubin AST ALT Alkaline Phosphatase Troponin I B-Natriuretic Peptide Total Protein Albumin Globulin Albumin/Globulin Ratio Assess/Plan/Problems-Billing Assessment: 57 yo female PMG DMT2, CKD stage V, HTN, HLD who got 3x week HD from 09/24 to who presents in [facility] having gained 35lbs since las HD. Suspect will be HD dependent, on board, plan HD 11/07. - Patient Problems (1) ESRD (end stage renal disease) Current Visit: Yes Status: Acute Code(s): N18.6 - END STAGE RENAL DISEASE SNOMED Code(s): 97649304 Comment: Resume torsemide 100mg BID, add metolazone 5 mg daily. To report to Emergency room on Friday11/10/17, Friday11/12/17 and Friday for Dialysis. and then continue this on a weekly basis. (2) Diabetes mellitus Current Visit: Yes Status: Acute Code(s): E11.9 - TYPE 2 DIABETES MELLITUS WITHOUT COMPLICATIONS SNOMED Code(s): 56277327 Comment: Lantus was stopped d/t worsening renal failure On 2 Sliding scales. (3) HTN (hypertension) Current Visit: Yes Status: Acute Code(s): I10 - ESSENTIAL (PRIMARY) HYPERTENSION SNOMED Code(s): 10984031 Comment: continue amlodipine 10mg. (4) HLD (hyperlipidemia) Current Visit: Yes Status: Acute Code(s): E78.5 - HYPERLIPIDEMIA, UNSPECIFIED SNOMED Code(s): 67541741 Comment: Continue statin. (5) Anemia Current Visit: Yes Status: Acute Code(s): D64.9 - ANEMIA, UNSPECIFIED SNOMED Code(s): 256954478 Comment: Expected with ESRD. No iron studies in our system. Reduce FeSO4 to 325 mg daily. Status and Disposition: medicine inpatient.
[2017-11-08] MEDS: Torsemide TAB* 100 MG PO SCH ×2 (12:53→22:17)
[2017-11-08] MEDS: Metolazone TAB* 5 MG PO SCH (12:53)
[2017-11-08] MEDS: Spironolactone TAB* 25 MG PO SCH (13:31)
--- NOTE | 2017-11-08 14:50 | DS ---
CC: Dr. Norris, ; Alvaro Sebastian MD, Nephrology * DISCHARGE SUMMARY: DATE OF ADMISSION: 11/05/17 DATE OF DISCHARGE: 11/08/17 PROVIDER: Martha Martin NP ATTENDING PHYSICIAN: Dr. Jasmin Meeks * (dictated by Martha Martin NP). PRIMARY CARE PROVIDER: Dr. Norris, . PRIMARY DIAGNOSES: Acute volume overload with end-stage renal disease and type 2 diabetes. SECONDARY DIAGNOSES: 1. Hypertension. 2. Hyperlipidemia. STUDIES WHILE IN THE HOSPITAL: On 11/05/17, she had a chest x-ray, which showed radiologist's impression: Pulmonary vascular congestion with associated small pleural effusions and basilar atelectasis. She had an electrocardiogram, which showed sinus rhythm at a rate of 78. DISCHARGE MEDICATIONS: New home medications: 1. PhosLo 667 mg will take t.i.d. with meals. Continued home meds: 1. Furosemide 100 mg p.o. b.i.d. 2. B complex with folic acid 1 tablet at bedtime. 3. Atorvastatin 40 mg p.o. daily. 4. Lisinopril 5 mg p.o. daily. 5. Ascorbic acid 250 mg p.o. daily. 6. Iron 65 mg p.o. b.i.d. 7. Vitamin D 50,000 units p.o. weekly. 8. Amlodipine 10 mg p.o. daily. 9. Aldactone 25 mg p.o. daily. 10. NovoLog subcu sliding scale. 11. Gabapentin 100 mg p.o. t.i.d. 12. Fluoxetine 20 mg p.o. at bedtime. HISTORY OF PRESENT ILLNESS AND HOSPITAL COURSE: Ms. Chavez is a 57-year-old female that presented to the emergency room on 11/05/17 complaining of increased fatigue, shortness of breath, and generalized swelling over the past 3 to 4 days. The shortness of breath was worse with activity and lying flat. She reports some chills with some watery diarrhea x3 days and a single episode of nausea and vomiting today. Denies fevers, sweats, chest pain, palpitation, lightheadedness, black or bloody contents in emesis or stool. She denies any other symptoms. She does carry a history of type 2 diabetes; end-stage renal disease, on intermittent hemodialysis; hypertension; hyperlipidemia. She states her last dialysis treatment was 10/11/17. She reports that she has had a 35-pound weight gain since her last dialysis treatment and that she is producing less than normal volume of urine. While in the emergency room, she had a chest x-ray done and routine lab work. Chest x-ray showed pulmonary venous congestion with associated small pleural effusions and basilar atelectasis. She has been receiving Lasix 120 mg b.i.d. along with metolazone 5 mg 30 minutes prior to the Lasix. She has been diuresing fluids. She also did receive hemodialysis on 11/07/17, which she tolerated well. While in the hospital, she received hemodialysis on 11/07/17. During dialysis, she did have 4 L taken off her today and was able to tolerate that well. Her lab work from 11/05/17 showed an H and H of 8.5 and 26, her platelet count was 391. She chronically is anemic and looks like the last several H and H levels have been consistent with 8.5 and 26. She also had a BMP on 11/05/17, sodium was 142, potassium was 4.2, chloride was 116, carbon dioxide was 15, BUN was 17 , creatinine was 4.58. On 10/21/17, her BUN was 61. On 10/21/17, her creatinine level was 3.39; on 11/06/17, it was 4.58. Ms. Chavez is doing well after her hemodialysis today. She is stable for discharge home. Ms. Chavez is stable for discharge home today. Vital signs are as follows: Temperature is 98.3, heart rate is 79, respirations are 16, blood pressure 137/ 70, O2 saturation is 96% on room air. DISCHARGE PLAN: Ms. Chavez will be discharged back to home. ACTIVITY: As tolerated. DIET: She should resume a renal diet. In regards to her end-stage renal disease, she will receive hemodialysis on Mondays, Wednesdays, and Fridays. She was instructed to report to the emergency room Friday morning at 9 a.m. and was instructed to tell the emergency room she was a patient of Dr. Sebastian and that she would need hemodialysis. She verbalized understanding. She will also start PhosLo 667 mg p.o. 3 times a day with meals. She will stop her Lantus and continue her sliding scale NovoLog. FOLLOWUP: The patient should follow up with her primary care provider in 4 to 7 days, Dr. Norris, from . She was also instructed to call Dr. Sebastian's office for a followup appointment and was instructed to report to the emergency room on Friday at [facility] for hemodialysis. She was instructed to report at 9 a.m. TIME SPENT: Time spent on this discharge was approximately 60 minutes, greater than half that time was spent with the patient discussing discharge plans and instructions. CONDITION AT THE TIME OF DISCHARGE: Stable. MARTHA MARTIN NP [id number]/[facility] #: [id number] [facility]
[2017-11-08] MEDS: Vitamin B Complex TAB PO SCH (22:17)
[2017-11-08] MEDS: Atorvastatin* 40 MG TAB PO SCH (22:17)
[2017-11-08] MEDS: Folic Acid TAB* 1 MG PO SCH (22:18)
[2017-11-08] MEDS: FLUoxetine CAP* 20 MG PO SCH (22:18)
[2017-11-09] MEDS: Insulin LISPRO* 1 UNITS UNIT SUBCUT SCH ×7 (07:35→21:05)
[2017-11-09] MEDS: Torsemide TAB* 100 MG PO SCH ×2 (09:53→21:18)
[2017-11-09] MEDS: Calcium Acetate CAP* 667 MG PO SCH ×3 (09:53→21:18)
[2017-11-09] MEDS: Ferrous Sulfate TAB* 325 MG PO SCH (09:53)
[2017-11-09] MEDS: Metolazone TAB* 5 MG PO SCH (09:53)
[2017-11-09] MEDS: amLODIPine TAB* 5 MG PO SCH (09:54)
[2017-11-09] MEDS: Gabapentin CAP(*) 100 MG PO SCH ×3 (09:54→21:18)
[2017-11-09] MEDS: Ascorbic Acid TAB* 500 MG PO SCH (09:55)
[2017-11-09] MEDS: Docusate CAP* 100 MG PO SCH ×2 (09:59→21:06)
[2017-11-09] MEDS: Spironolactone TAB* 25 MG PO SCH (10:41)
--- NOTE | 2017-11-09 12:59 | PN ---
Subjective Date of Service: 11/09/17 Interval History: Patient feels her thighs and hands are less swollen today. No new c/o. Family History: Unchanged from Admission Social History: Unchanged from Admission Past Medical History: Unchanged from Admission Objective Active Medications: Acetaminophen (Tylenol Tab*) 650 mg PO Q6H PRN PRN Reason: FEVER/PAIN Last Admin: 11/08/17 07:55 Dose: 650 mg Albuterol (Ventolin 2.5 Mg/3 Ml Neb.Yazmin*) 2.5 mg INH Q2H PRN PRN Reason: SOB/WHEEZING Amlodipine Besylate (Norvasc Tab*) 10 mg PO DAILY [facility] Last Admin: 11/09/17 09:54 Dose: 10 mg Ascorbic Acid (Vitamin C Tab*) 250 mg PO DAILY [facility] Last Admin: 11/09/17 09:55 Dose: 250 mg Atorvastatin Calcium (Lipitor*) 40 mg PO 2100 [facility] Last Admin: 11/08/17 22:17 Dose: 40 mg Calcium Acetate (Phoslo Cap*) 667 mg PO TID [facility] Last Admin: 11/09/17 09:53 Dose: 667 mg Docusate Sodium (Colace Cap*) 200 mg PO BID [facility] Last Admin: 11/09/17 09:59 Dose: Not Given Ferrous Sulfate (Ferrous Sulfate Tab*) 325 mg PO DAILY [facility] Last Admin: 11/09/17 09:53 Dose: 325 mg Fluoxetine HCl (Prozac Cap*) 20 mg PO BEDTIME [facility] Last Admin: 11/08/17 22:18 Dose: 20 mg Folic Acid (Folvite Tab*) 0.5 mg PO BEDTIME [facility] Last Admin: 11/08/17 22:18 Dose: 0.5 mg Gabapentin (Neurontin Cap(*)) 100 mg PO TID [facility] Last Admin: 11/09/17 09:54 Dose: 100 mg Insulin Human Lispro (Humalog*) 0 units SUBCUT AC [facility] PRN Reason: Protocol Last Admin: 11/09/17 09:56 Dose: 9 unit Insulin Human Lispro (Humalog*) 0 units SUBCUT ACHS [facility] PRN Reason: Protocol Last Admin: 11/09/17 07:35 Dose: Not Given Metolazone (Zaroxolyn Tab*) 5 mg PO DAILY [facility] Last Admin: 11/09/17 09:53 Dose: 5 mg Spironolactone (Aldactone Tab*) 25 mg PO DAILY [facility] Last Admin: 11/09/17 10:41 Dose: 25 mg Torsemide (Demadex*) 100 mg PO BID [facility] Last Admin: 11/09/17 09:53 Dose: 100 mg Vitamin B Complex/Vitamin E (Complex B-100*) 1 tab PO BEDTIME [facility] Last Admin: 11/08/17 22:17 Dose: 1 tab Vital Signs - 8 hr 11/09/17 11/09/17 11/09/17 07:29 08:04 09:54 Respiratory 16 16 16 Rate Oxygen Devices in Use Now: None Appearance: Alert, in a chair. In good spirits. Looks comfortable. Eyes: No Scleral Icterus Extremities: No Clubbing, Cyanosis, - - Hands signifcantly less swollen c/w 1/6 , thighs somewhat less tense also. Skin: No Rash or Ulcers, No Nodules or Sclerosis, - Neurological: Alert and Oriented x 3, NL Sensation Result Diagrams: 11/05/17 21:28 11/06/17 05:44 Additional Lab and Data: Laboratory Results - last 24 hr 11/05/17 11/05/17 11/05/17 21:28 21:28 21:28 WBC 9.3 RBC 2.94 L Hgb 8.5 L Hct 26 L MCV 89 MCH 29 MCHC 33 RDW 17 H Plt Count 391 MPV 8 Neut % (Auto) 68.2 Lymph % (Auto) 23.5 L [place] % (Auto) 5.3 Eos % (Auto) 2.1 Baso % (Auto) 0.9 Absolute Neuts (auto) 6.3 Absolute Lymphs (auto) 2.2 Absolute Monos (auto) 0.5 Absolute Eos (auto) 0.2 Absolute Basos (auto) 0.1 Absolute Nucleated RBC 0 Nucleated RBC % 0 INR (Anticoag Therapy) Sodium 140 Potassium 4.2 Chloride 114 H Carbon Dioxide 18 L Anion Gap 8 BUN 67 H Creatinine 4.51 H Est GFR ( Amer) 13.0 Est GFR (Non-Af Amer) 10.1 BUN/Creatinine Ratio 14.9 Glucose 106 H POC Glucose (mg/dL) Hemoglobin A1c Lactic Acid Calcium 7.5 L Phosphorus Magnesium Total Bilirubin 0.20 AST 21 ALT 17 Alkaline Phosphatase 57 Troponin I 0.08 H* B-Natriuretic Peptide 2577 H Total Protein 5.2 L Albumin 1.8 L Globulin 3.4 Albumin/Globulin Ratio 0.5 L 11/05/17 11/05/17 11/05/17 21:28 21:28 21:28 WBC RBC Hgb Hct MCV MCH MCHC RDW Plt Count MPV Neut % (Auto) Lymph % (Auto) [place] % (Auto) Eos % (Auto) Baso % (Auto) Absolute Neuts (auto) Absolute Lymphs (auto) Absolute Monos (auto) Absolute Eos (auto) Absolute Basos (auto) Absolute Nucleated RBC Nucleated RBC % INR (Anticoag Therapy) 0.83 Sodium Potassium Chloride Carbon Dioxide Anion Gap BUN Creatinine Est GFR ( Amer) Est GFR (Non-Af Amer) BUN/Creatinine Ratio Glucose POC Glucose (mg/dL) Hemoglobin A1c 5.7 H Lactic Acid 0.3 L Calcium Phosphorus Magnesium Total Bilirubin AST ALT Alkaline Phosphatase Troponin I B-Natriuretic Peptide Total Protein Albumin Globulin Albumin/Globulin Ratio 11/06/17 11/06/17 11/06/17 05:44 07:49 11:19 WBC RBC Hgb Hct MCV MCH MCHC RDW Plt Count MPV Neut % (Auto) Lymph % (Auto) [place] % (Auto) Eos % (Auto) Baso % (Auto) Absolute Neuts (auto) Absolute Lymphs (auto) Absolute Monos (auto) Absolute Eos (auto) Absolute Basos (auto) Absolute Nucleated RBC Nucleated RBC % INR (Anticoag Therapy) Sodium 142 Potassium 4.2 Chloride 116 H Carbon Dioxide 15 L Anion Gap 11 BUN 70 H Creatinine 4.58 H Est GFR ( Amer) 12.8 Est GFR (Non-Af Amer) 9.9 BUN/Creatinine Ratio 15.3 Glucose 113 H POC Glucose (mg/dL) 102 H 124 H Hemoglobin A1c Lactic Acid Calcium 7.6 L Phosphorus 10.4 H Magnesium 2.3 Total Bilirubin AST ALT Alkaline Phosphatase Troponin I B-Natriuretic Peptide Total Protein Albumin Globulin Albumin/Globulin Ratio 11/06/17 16:46 WBC RBC Hgb Hct MCV MCH MCHC RDW Plt Count MPV Neut % (Auto) Lymph % (Auto) [place] % (Auto) Eos % (Auto) Baso % (Auto) Absolute Neuts (auto) Absolute Lymphs (auto) Absolute Monos (auto) Absolute Eos (auto) Absolute Basos (auto) Absolute Nucleated RBC Nucleated RBC % INR (Anticoag Therapy) Sodium Potassium Chloride Carbon Dioxide Anion Gap BUN Creatinine Est GFR ( Amer) Est GFR (Non-Af Amer) BUN/Creatinine Ratio Glucose POC Glucose (mg/dL) 87 Hemoglobin A1c Lactic Acid Calcium Phosphorus Magnesium Total Bilirubin AST ALT Alkaline Phosphatase Troponin I B-Natriuretic Peptide Total Protein Albumin Globulin Albumin/Globulin Ratio Assess/Plan/Problems-Billing Assessment: 57 yo female PMG DMT2, CKD stage V, HTN, HLD who got 3x week HD from 09/24 to who presents in [facility] having gained 35lbs since las HD. Suspect will be HD dependent, on board, plan HD 11/07. - Patient Problems (1) ESRD (end stage renal disease) Current Visit: Yes Status: Acute Code(s): N18.6 - END STAGE RENAL DISEASE SNOMED Code(s): 75495350 Comment: Continue torsemide 100mg BID, add metolazone 5 mg daily. Daily weights. To report to Emergency room on Friday11/10/17, Friday11/12/17 and Friday for Dialysis. and then continue this on a weekly basis. (2) Diabetes mellitus Current Visit: Yes Status: Acute Code(s): E11.9 - TYPE 2 DIABETES MELLITUS WITHOUT COMPLICATIONS SNOMED Code(s): 17416485 Comment: Lantus was stopped d/t worsening renal failure On 2 Sliding scales. (3) HTN (hypertension) Current Visit: Yes Status: Acute Code(s): I10 - ESSENTIAL (PRIMARY) HYPERTENSION SNOMED Code(s): 09759149 Comment: continue amlodipine 10mg. (4) HLD (hyperlipidemia) Current Visit: Yes Status: Acute Code(s): E78.5 - HYPERLIPIDEMIA, UNSPECIFIED SNOMED Code(s): 96663358 Comment: Continue statin. (5) Anemia Current Visit: Yes Status: Acute Code(s): D64.9 - ANEMIA, UNSPECIFIED SNOMED Code(s): 487073408 Comment: Expected with ESRD. No iron studies in our system. Reduce FeSO4 to 325 mg daily. Status and Disposition: medicine inpatient.
[2017-11-09] MEDS: Folic Acid TAB* 1 MG PO SCH (21:18)
[2017-11-09] MEDS: FLUoxetine CAP* 20 MG PO SCH (21:18)
[2017-11-09] MEDS: Vitamin B Complex TAB PO SCH (21:18)
[2017-11-09] MEDS: Atorvastatin* 40 MG TAB PO SCH (21:18)
[2017-11-10] MEDS: Insulin LISPRO* 1 UNITS UNIT SUBCUT SCH ×7 (08:35→21:25)
[2017-11-10] MEDS: Metolazone TAB* 5 MG PO SCH (09:07)
--- NOTE | 2017-11-10 09:38 | PN ---
Progress Note - Progress Note Date of Service: 11/10/17 Note: Time spent on discharge 45 minutes.
[2017-11-10] MEDS: Gabapentin CAP(*) 100 MG PO SCH ×3 (10:03→21:27)
[2017-11-10] MEDS: Docusate CAP* 100 MG PO SCH ×2 (10:03→21:26)
[2017-11-10] MEDS: Calcium Acetate CAP* 667 MG PO SCH ×3 (10:03→21:27)
[2017-11-10] MEDS: Ascorbic Acid TAB* 500 MG PO SCH (10:03)
[2017-11-10] MEDS: Torsemide TAB* 100 MG PO SCH ×2 (10:04→21:27)
[2017-11-10] MEDS: amLODIPine TAB* 5 MG PO SCH (10:04)
[2017-11-10] MEDS: Ferrous Sulfate TAB* 325 MG PO SCH (10:04)
[2017-11-10] MEDS: Spironolactone TAB* 25 MG PO SCH (10:04)
[2017-11-10 11:30] LABS: ABS Basophils 0.1 10^3/ul (0-0.2); ABS Eosinophils 0.3 10^3/ul (0-0.6); ABS Lymphocytes 1.9 10^3/ul (1.0-4.8); ABS Monocytes 0.7 10^3/ul (0-0.8); ABS Nucleated RBC 0 10^3/ul; Eosinophil % 3.5 % (0-6); Hematocrit 24 % (35-47); Lymphocyte % 24.3 % (25-47); Mean Corpuscular HGB Conc 33 g/dl (31-36); Mean Corpuscular Hemoglobin 29 pg (27-31); Mean Corpuscular Volume 87 fL (80-97); Mean Platelet Volume 8 um3 (7.4-10.4); Nucleated Red Blood Cells % 0; Platelet Count 392 10^3/ul (150-450); Red Blood Count 2.73 10^6/ul (4.0-5.4); Red Cell Distribution Width 17 % (10.5-15)
[2017-11-10] MEDS ORDERED: Epoetin Alfa* 10,000 UNITS/ML VIAL IV ONE (11:30)
[2017-11-10] MEDS: Atorvastatin* 40 MG TAB PO SCH (21:27)
[2017-11-10] MEDS: Vitamin B Complex TAB PO SCH (21:27)
[2017-11-10] MEDS: Folic Acid TAB* 1 MG PO SCH (21:28)
[2017-11-10] MEDS: FLUoxetine CAP* 20 MG PO SCH (21:28)
--- NOTE | 2017-11-11 04:01 | DS ---
CC: Dr. Sebastian * DISCHARGE SUMMARY: DATE OF ADMISSION: DATE OF DISCHARGE: 11/10/17 HISTORY: This 57-year-old woman was admitted with shortness of breath. She has end-stage renal disease. She had been given 2 months of dialysis and then was given a trial off dialysis with the last dialysis prior to this admission being on 10/11/17. She had gained about 35 pounds. She had anasarca and shortness of breath. The patient was given intravenous furosemide and oral metolazone. She was started back on dialysis. She did well in the hospital and was much improved. She lost about 16 pounds. I added metolazone orally to her home regimen. The patient is applying for medicare and in the meantime will have to come to the emergency room on Friday, Friday, and Friday to be dialyzed as an outpatient in the hospital. DISCHARGE DIAGNOSES: 1. End-stage renal disease. 2. Diabetes. 3. Hypertension. 4. Hyperlipidemia. 5. Anemia. DISCHARGE MEDICATIONS: 1. Calcium acetate 667 mg t.i.d. 2. Metolazone 5 mg daily. 3. Torsemide 100 mg b.i.d. 4. Fluoxetine 20 mg daily. 5. Gabapentin 100 mg t.i.d. 6. Lisinopril 5 mg daily. 7. Ascorbic acid 250 mg daily. 8. Iron 65 mg b.i.d. 9. Vitamin D2 of 50,000 units weekly. 10. Atorvastatin 40 mg daily at 9 p.m. 11. Amlodipine 10 mg daily. 12. Spironolactone 25 mg daily. 13. NovoLog insulin by sliding scale. 14. Caryn-Roxy 1 daily. [id number]/[facility] #: [id number] [facility]
[2017-11-11 07:49] VITALS: BP 147/66
[2017-11-11] MEDS: Insulin LISPRO* 1 UNITS UNIT SUBCUT SCH ×2 (07:52→09:16)
[2017-11-11] MEDS: Metolazone TAB* 5 MG PO SCH (09:15)
[2017-11-11] MEDS: Docusate CAP* 100 MG PO SCH ×2 (09:15→09:17)
[2017-11-11] MEDS: Torsemide TAB* 100 MG PO SCH (09:16)
[2017-11-11] MEDS: Calcium Acetate CAP* 667 MG PO SCH (09:16)
[2017-11-11] MEDS: amLODIPine TAB* 5 MG PO SCH (09:16)
[2017-11-11] MEDS: Spironolactone TAB* 25 MG PO SCH (09:16)
[2017-11-11] MEDS: Ferrous Sulfate TAB* 325 MG PO SCH (09:16)
[2017-11-11] MEDS: Ascorbic Acid TAB* 500 MG PO SCH (09:16)
[2017-11-11] MEDS: Gabapentin CAP(*) 100 MG PO SCH (09:16)
--- NOTE | 2017-11-11 09:16 | PN ---
Progress Note - Progress Note Date of Service: 11/11/17 Note: Patient interviewed and examined. Time spent on discharge 50 minutes.
== END 2017-11-11 09:30 | disposition home or self-care (01) | DRG 682 ==
LOC: ED 16:21 → MEDTELE 22:23
PROVIDERS: ADMIT Hospitalist; ATTEND Internal Medicine
PROC: 5A1D70Z Performance of Urinary Filtration, Intermittent, Less than 6 Hours Per Day (ICD-10-PCS; principal; 2017-11-07)
PROC: 5A1D70Z Performance of Urinary Filtration, Intermittent, Less than 6 Hours Per Day (ICD-10-PCS; 2017-11-10)
DX: I12.0 Hypertensive chronic kidney disease with stage 5 chronic kidney disease or end stage renal disease (principal); N18.6 End stage renal disease; J90 Pleural effusion, not elsewhere classified; E11.22 Type 2 diabetes mellitus with diabetic chronic kidney disease; E87.70 Fluid overload, unspecified; J98.11 Atelectasis; D64.9 Anemia, unspecified; E78.5 Hyperlipidemia, unspecified; F17.210 Nicotine dependence, cigarettes, uncomplicated; Z66 Do not resuscitate; Z79.899 Other long term (current) drug therapy; Z99.2 Dependence on renal dialysis; Z79.84 Long term (current) use of oral hypoglycemic drugs; Z79.4 Long term (current) use of insulin; Z82.3 Family history of stroke; Z83.3 Family history of diabetes mellitus; Z81.1 Family history of alcohol abuse and dependence; Z80.49 Family history of malignant neoplasm of other genital organs
CPT/HCPCS: 36415; 71045; 80048; 80053; 83036; 83605; 83735; 83880; 84100; 84484; 85025; 85610; 87040; 93005; 99406; A9270-GY; J0885; J1644; J1940

== ENCOUNTER 2017-11-25 12:28 | Day surgery (SDC) | payer MEDICAID ==
[~2017-11-25 12:28] MED LIST: Buffered Lidocaine 0.9% SYRIN* 5 ML/SYR SYRINGE INTRADERM ONE
[2017-11-25] MEDS ORDERED: ceFAZolin 2 GM PREMIX (*) 2 GM/50 ML BAG IVPB ONE ×2 (12:43)
[2017-11-25] MEDS ORDERED: Buffered Lidocaine 0.9% SYRIN* 5 ML/SYR SYRINGE ONE (12:43)
[2017-11-25] MEDS ORDERED: Lidocaine 1% INJ* 10 MG/ML 30 ML SDV ONE ×2 (14:33)
[2017-11-25] MEDS ORDERED: Heparin VIAL(*) 5000 UNITS/ML VIAL (FIVE THOUSAND) ONE ×4 (14:33→16:04)
[2017-11-25] MEDS ORDERED: fentaNYL* 50 MCG/ML 2 ML VIAL (100 MCG VIAL) ONE ×2 (15:13)
[2017-11-25] MEDS ORDERED: Midazolam* 1 MG/ML 2 ML VIAL (2 MG) ONE ×2 (15:13)
[2017-11-25] MEDS ORDERED: Propofol* 10 MG/ML 20 ML BTL IV PUSH ONE ×2 (15:49)
[2017-11-25] MEDS ORDERED: Naloxone* 0.4 MG/ML 1 ML VIAL IV PRN (15:59)
[2017-11-25] MEDS ORDERED: oxyCODONE/Acetamin 5/325 MG* TAB PO PRN (16:28)
[2017-11-25 16:56] VITALS: BP 128/69
--- NOTE | 2017-11-25 17:00 | RAD ---
Indication: Hemodialysis catheter placement. Single frontal view of the chest performed at 1635 hours was reviewed. Comparison is made with previous exam dated November 05, 2017. No mediastinal shift is noted. Heart is of normal size and configuration. Lung hines appear clear. Central catheter is in place with in superior vena cava. IMPRESSION: CENTRAL CATHETER IN PLACE. NO PNEUMOTHORAX IS NOTED.
--- NOTE | 2017-11-25 17:01 | RAD ---
CPT II Codes: 6045F INDICATION: Hemodialysis catheter placement. Fluoroscopic services provided for referring physician for hemodialysis catheter placement. 7 seconds of fluoroscopy time was used. One spot image demonstrates placement of a dialysis catheter with the tip in the superior vena cava. IMPRESSION: FLUOROSCOPIC SERVICES PROVIDED FOR REFERRING PHYSICIAN FOR CATHETER PLACEMENT.
--- NOTE | 2017-11-26 12:19 | OP ---
CC: Alvaro Sebastian MD * DATE OF OPERATION: 11/25/17 - [facility] DATE OF : 64 SURGEON: Davon Rothman MD TRAFFIC ADMINISTRATOR: None. ANESTHESIOLOGIST: Benedicto Ko DO ANESTHESIA: Local MAC. PRE-OP DIAGNOSIS: End-stage renal disease. POST-OP DIAGNOSIS: End-stage renal disease. OPERATIVE PROCEDURE: Placement of cuffed-tunneled hemodialysis catheter via exchange over guidewire. ESTIMATED BLOOD LOSS: 10 mL. IV FLUIDS: Normal saline. DRAINS: None. COMPLICATIONS: None. COUNTS: The instrument, needle, and sponge counts were correct. DESCRIPTION OF PROCEDURE: The patient was brought to the operating room placed on the table supine. The patient's neck and chest were prepped and draped in usual sterile fashion including the indwelling catheter. She was administered appropriate intravenous antibiotics and time-out was performed. Local anesthetic was infiltrated into the skin and subcutaneous tissue along the proposed new catheter tunnel site. The tissues over the indwelling catheter were also anesthetized with local. The initial incision was at the apex of the catheter through the previous scar and the indwelling catheter was dissected free from the tunnel and a loop of the catheter elevated. It was clamped proximally and distally, divided. Then, the exit site for the new catheter, which was a 23-cm cuff-to-tip BioFlo Duramax catheter was made and the catheter was tunneled to the guidewire site. The old catheter was threaded with the guidewire and removed and the position of guidewire confirmed under fluoroscopy. The dilators were placed and peel-away sheath placed under fluoroscopic guidance and then the new catheter was threaded into the superior vena cava and the peel-away sheath was removed. The position of the catheter tip was confirmed under fluoroscopy. The catheter was accessed and withdrew and flushed easily. The catheter was sutured in place with 3-0 Prolene at 2 sites and the exit site, and incisions in the neck were closed with 3-0 Vicryl and subcuticular. The remaining portions of the old catheter were then removed by cutting down over the area of the cuff and dissecting out the cuff again dividing the catheter distally so that the external portion dropped away. This incision was also closed with 3-0 Vicryl. The exit site was left open and dressed with gauze. Steri-Strip dressings were applied to the neck incisions and Tegaderm dressing was applied over the catheter, which was also flushed with appropriate amounts of heparin. The patient tolerated the procedure well and was transferred to recovery room in stable condition. A post procedural chest x-ray revealed good placement of the catheter with no evidence of pneumothorax. [id number]/[facility] #: [id number]
== END 2017-11-25 17:00 | disposition home or self-care (01) ==
LOC: OR 12:28
PROVIDERS: ATTEND Surgery
DX: E11.22 Type 2 diabetes mellitus with diabetic chronic kidney disease (principal); N18.6 End stage renal disease; I12.0 Hypertensive chronic kidney disease with stage 5 chronic kidney disease or end stage renal disease; E11.8 Type 2 diabetes mellitus with unspecified complications; Z79.4 Long term (current) use of insulin; E78.5 Hyperlipidemia, unspecified; R06.02 Shortness of breath; R53.83 Other fatigue; Z99.2 Dependence on renal dialysis
CPT/HCPCS: 71045; 76001; C1751; C1752; J0690; J1644; J2250; J2704; J3010